=== PATIENT | male | born 1965 | race Two or more races ===

== ENCOUNTER 2018-11-10 19:38 | Emergency (ER) | payer MEDICAID, OTHER ==
[~2018-11-10] VITALS: Ht 158.8 cm; Wt 61.2 kg
--- NOTE | 2018-11-10 19:57 | NUR ---
BIBA FOR EVALUATION OF R CALF PAIN. - EDEMA. - REDNESS. STRONG PEDAL PULSE.
[2018-11-10 20:27] LABS: BASOPHILS # (AUTO) 0.1 /CMM (0.0-0.2); BASOPHILS % (AUTO) 0.9 % (0.0-2.0); EOSINOPHILS % (AUTO) 0.3 % (0.0-6.0); HEMATOCRIT 47 % (39-51); HEMOGLOBIN 16.3 g/dL (13.5-17.5); LYMPHOCYTES # (AUTO) 1.5 /CMM (0.8-4.8); LYMPHOCYTES % (AUTO) 15.9 % (20.0-44.0); MEAN CORPUSCULAR HGB CONC 34 g/dl (31.0-36.0); MEAN CORPUSCULAR VOLUME 92 fL (80-96); MONOCYTES # (AUTO) 0.8 /CMM (0.1-1.30); MONOCYTES % (AUTO) 8.5 % (2.0-12.0); NEUTROPHILS % (AUTO) 74.4 % (43.0-81.0); PLATELET COUNT (AUTO) 209 /CMM (150-450); RED BLOOD CELL COUNT(AUTO) 5.17 MIL/uL (4.5-6.0); WHITE BLOOD COUNT (AUTO) 9.4 K/uL (4.3-11.0)
[2018-11-10] MEDS ORDERED: IV NS 0.9% 1,000 ML BAG IV ONE (20:30)
[2018-11-10 20:38] LABS: CALCIUM, SERUM 9.2 mg/dL (8.5-10.1); CARBON DIOXIDE 21 mmol/L (21-32); CHLORIDE 104 mmol/L (98-107); CREATININE 1.1 mg/dL (0.6-1.3); GLUCOSE 183 mg/dL (74-106); POTASSIUM 3.4 mmol/L (3.5-5.1); SODIUM SERUM 141 mmol/L (136-145); UREA NITROGEN, BLOOD 21 mg/dL (7-18)
--- NOTE | 2018-11-10 20:43 | NUR ---
ASKED PT FOR URINE SAMPLE MULTIPLE TIME. PT UABLE TO PROVIDE SAMPLE AT THIE TIME. WILL F/U
--- NOTE | 2018-11-10 20:59 | NUR ---
CALLED [facility]. FAXED OVER FACESHEET, CLINICALS, EKG
[2018-11-10] MEDS ORDERED: ASPIRIN 325 MG TABLET PO ONE (21:00)
--- NOTE | 2018-11-10 21:02 | NUR ---
[employer] NAME IS DANE. FAX CONFIRMED
[2018-11-10] MEDS ORDERED: ASPIRIN 325 MG TABLET ONE (21:08)
--- NOTE | 2018-11-10 21:13 | NUR ---
CALLED DR SALAZAR FOR A DR TO SPEAKING NOW
[2018-11-10 21:15] LABS: APPEARANCE,URINE Clear (CLEAR); BILIRUBIN,URINE Negative (NEGATIVE); BLOOD, URINE Small Ery/uL (NEGATIVE); COLOR,URINE Yellow (YELLOW); KETONES,URINE Negative (NEGATIVE); LEUKOCYTE ESTERASE ,URINE Negative (NEGATIVE); NITRITE, URINE Negative (NEGATIVE); PROTEIN,URINE 100 mg/dl (NEGATIVE); UGLUCOSE Negative (NEGATIVE); UROBILINOGEN,URINE 0.2 EU/dL (0.2)
[2018-11-10 21:17] LABS: BACTERIA,URINE Few /HPF (None Seen); SQUAMOUS EPITHELIAL CELL,UR Few /HPF (None Seen); WBC,URINE 0-2 /HPF (0-3)
--- NOTE | 2018-11-10 21:17 | NUR ---
PT WAS PROVIDED W/ 2 IV LINES 18G ON RAC AND LAC. PT REMAINED ON CONTINUOUS MONITORING. VSS. PT DENIED ANY CP OR SOB. WILL CONT TO MONITOR ,
[2018-11-10] MEDS ORDERED: METOPROLOL TARTRATE 25 MG TABLET PO ONE (21:30)
[2018-11-10] MEDS ORDERED: ENOXAPARIN SODIUM 80 MG/0.8 ML DISP.SYRIN SQ ONE (21:30)
[2018-11-10] MEDS ORDERED: ENOXAPARIN SODIUM 60 MG/0.6 ML DISP.SYRIN SQ ONE (21:35)
[2018-11-10] MEDS ORDERED: METOPROLOL TARTRATE 50 MG TABLET ONE (21:35)
[2018-11-10] MEDS ORDERED: ATORVASTATIN 40 MG TABLET ONE (21:35)
--- NOTE | 2018-11-10 21:44 | NUR ---
[facility] WILL PROVIDE TRANSFER FOR PT
[2018-11-10] MEDS ORDERED: Magnesium 1 GM/2 ML VIAL IV ONE (22:00)
[2018-11-10] MEDS ORDERED: ATORVASTATIN 40 MG TABLET PO SCH (22:00)
[2018-11-10] MEDS ORDERED: Magnesium 1GM/D5W 100ML PREMIX 100 ML IV ONE (22:04)
[2018-11-10 22:14] VITALS: BP 146/82
--- NOTE | 2018-11-10 22:27 | NUR ---
report given to Lisa ANGELO with transportation.
--- NOTE | 2018-11-10 22:40 | NUR ---
PT WAS PICKED UP BY [facility] UNDER ACLS. VSS.
== END 2018-11-10 22:40 | disposition short-term general hospital (02) ==
LOC: ER 19:39
DX: I21.4 Non-ST elevation (NSTEMI) myocardial infarction (principal); I10 Essential (primary) hypertension; Z60.2 Problems related to living alone
CPT/HCPCS: 36415; 71045; 80048; 81001; 82550; 83605; 83735; 84484; 85025; 93005 ×3; 96365; 96372; 99285; J1650; J3475; J7030; 81000-TC